=== PATIENT | female | born 1965 | race Caucasian/White ===

== ENCOUNTER → 2023-02-04 | Outpatient (CLI) | payer BC ==
--- NOTE | 2023-02-04 16:10 | BD ---
EXAMINATION TYPE: Axial Bone Density DATE OF EXAM: 02/04/2023 CLINICAL HISTORY: 57 years old Female. ICD-10 CODE: Z78.0 POST MENOPAUSAL Height: 59.5 Weight: 155.8 FRAX RISK QUESTIONS: Alcohol (3 or more units per day): no Family History (Parent hip fracture): no Glucocorticoids (More than 3mos): no History of Fracture in Adulthood: tib-fib, femur, ankle Secondary Osteoporosis: 1. Type 1 Diabetes: no 2. Hyperthyroidism: no 3. Menopause before 45: no 4. Malnutrition: no 5. Chronic liver disease: no Rheumatoid Arthritis: no Current Tobacco Use: yes RISK FACTORS HISTORY OF: Hip Fracture (Right/Left): no Spine Fracture: no History of Wrist Fracture: no Surgery to Spine/Hip(right/left)/Wrist (right/left): no Family History of Osteoporosis: no Active: no Diet low in dairy products/other sources of calcium: yes Postmenopausal woman: yes Take estrogen and/or progesterone medications: no Lost more than 2 inches in height since high school: no Frequent falls: no Poor Health: no Hyperparathyroidism: no Adrenal Insufficiency: no MEDICATIONS: Prednisone or other steroids: no Thyroid Medications: no Osteoporosis Medications: no Additional Medications: depression/anxiety meds, Additional History: EXAM MEASUREMENTS: Bone mineral densitometry was performed using the [employer] System. Bone mineral density as measured about the Lumbar spine is: ----- L1-L4(G/cm2): 0.921 T Score Values are as follows: ----- L1: -1.6 ----- L2: -2.6 ----- L3: -2.5 ----- L4: -2.1 ----- L1-L4: -2.2 Z Score Values are as follows: ----- L1:-0.8 ----- L2: -1.8 ----- L3: -1.7 ----- L4: -1.3 ----- L1-L4: -1.4 Baseline study Bone mineral density about the R hip (g/cm2): 0.891 Bone mineral density about the L hip (g/cm2): 0.886 T Score values are as follows: -----R Neck: -1.9 -----L Neck: -1.9 -----R Total: -0.9 -----L Total: -1.0 Z Score values are as follows: -----R Neck: -0.9 -----L Neck: -0.9 -----R Total: -0.3 -----L Total: -0.3 Baseline study FRAX%s: The graph provided illustrates a 8.3%chance for a major osteoporotic fx and a 1.7%chance for the hips probability for fx in 10 years time. IMPRESSION: Osteopenia (T Score between -2.5 and -1). There is slightly increased risk of fracture and the patient may be considered for treatment. Re-Screen 2-5 years. NOTE: T-SCORE=SD OF THE YOUNG ADULT MEAN.
--- NOTE | 2023-02-08 08:40 | MM ---
Reason for Exam: Screening (asymptomatic). Last mammogram was performed 11 year(s) and 10 month(s) ago. Patient History: Menarche at age 12. First Full-Term at age 18. Left ovary removed at age 47. Right ovary removed at age 47. Hysterectomy at age 47. Postmenopausal. Hormonal Contraceptives for 2 years from age 19 until age 21. Mother had ovarian cancer at or over age 50. Risk Values: Yasmeen 5 year model risk: 0.9%. NCI Lifetime model risk: 5.7%. Prior Study Comparison: 01/09/2002 Screening Mammogram, [facility]. 12/24/2005 Screening Mammogram, [facility]. 04/17/2011 Bilateral Screening Mammogram, [facility]. Tissue Density: The breast tissue is heterogeneously dense. This may lower the sensitivity of mammography. Findings: Analyzed By CAD. There are single benign appearing round calcifications now seen in the bilateral breasts. There is no suspicious new group of microcalcifications or new suspicious mass in either breast. Overall Assessment: Benign, BI-RAD 2 Management: Screening Mammogram of both breasts in 1 year. A clinical breast exam by your physician is recommended on an annual basis and results should be correlated with mammographic findings. Electronically signed and approved by: Cortez Brown M.D.
== END | disposition home or self-care (01) ==
LOC: RADMAMWWP 13:56
PROVIDERS: ATTEND Family Medicine
DX: Z12.31 Encounter for screening mammogram for malignant neoplasm of breast (principal); M81.0 Age-related osteoporosis without current pathological fracture; M85.89 Other specified disorders of bone density and structure, multiple sites; Z78.0 Asymptomatic menopausal state
CPT/HCPCS: 77067; 77080